=== PATIENT | female | born 1945 | race Caucasian/White ===

== ENCOUNTER 2018-03-13 10:15 | Emergency (ER) | payer MEDICARE, OTHER ==
[~2018-03-13] VITALS: Ht 160 cm; Wt 60.0 kg
[2018-03-13 10:18] VITALS: BP 146/72
== END 2018-03-13 11:01 | disposition home or self-care (01) ==
LOC: ER 10:16
DX: R04.0 Epistaxis (principal); M06.9 Rheumatoid arthritis, unspecified; Z88.8 Allergy status to other drugs, medicaments and biological substances
CPT/HCPCS: 99283